=== PATIENT | female | born 1990 | race Two or more races ===

== ENCOUNTER 2017-07-06 11:18 | Emergency (ER) | payer OTHER ==
[2017-07-06 11:33] VITALS: BP 125/72
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
[2017-07-06] MEDS: MELOXICAM 7.5 MG TABLET PO STA (12:33)
[2017-07-06] MEDS: CYCLOBENZAPRINE 10 MG TABLET PO STA (12:33)
[2017-07-06] MEDS ORDERED: CYCLOBENZAPRINE 10 MG TABLET PO ONE (12:37)
[2017-07-06] MEDS ORDERED: MELOXICAM 7.5 MG TABLET PO ONE (12:38)
== END 2017-07-06 12:37 | disposition home or self-care (01) ==
LOC: ED 11:18
DX: T14.8XXA Other injury of unspecified body region, initial encounter (principal); M79.1 Myalgia; V49.50XA Passenger injured in collision with unspecified motor vehicles in traffic accident, initial encounter; F17.200 Nicotine dependence, unspecified, uncomplicated
CPT/HCPCS: 99283

== ENCOUNTER 2019-06-10 08:00 | Outpatient (CLI) | payer MEDICAID, OTHER ==
[2019-06-10 17:24] LABS: BILIRUBIN,URINE NEGATIVE (NEGATIVE); GLUCOSE, URINE (UA) NEGATIVE (NEGATIVE); KETONES,URINE (UA) NEGATIVE (NEGATIVE); LEUKOCYTE ESTERASE, URINE NEGATIVE (NEGATIVE); NITRITE,URINE NEGATIVE (NEGATIVE); OCCULT BLOOD,URINE MODERATE (NEGATIVE); PH,URINE 6.5 PH (5.0-7.5); PROTEIN,URINE NEGATIVE (NEGATIVE); UROBILINOGEN,URINE 0.2 (NORMAL) E.U./dL (NORMAL)
[2019-06-10 17:28] LABS: CLARITY,URINE CLEAR (CLEAR)
[2019-06-10 17:34] LABS: BACTERIA,URINE Moderate /HPF (None Seen); RBC,URINE 0-5 /HPF (0-5); SQUAMOUS EPITHELIAL CELL,UR RARE Squamous (<= Few)
== END 2019-06-10 23:59 | disposition home or self-care (01) ==
LOC: LAB.R 08:00
PROVIDERS: ATTEND Obstetrics & Gynecology
DX: N39.0 Urinary tract infection, site not specified (principal)
CPT/HCPCS: 80053; 81001; 85025; 85651; 86140; 87077; 87086; 87181

== ENCOUNTER 2020-06-07 10:40 | Outpatient (CLI) | payer BC | END 2020-06-07 23:59 | disposition home or self-care (01) | LOC: COV 10:40 | PROVIDERS: ATTEND Family Medicine | DX: Z20.828 Contact with and (suspected) exposure to other viral communicable diseases (principal) ==

== ENCOUNTER 2021-04-20 08:00 | Outpatient (CLI) | payer BC, OTHER | END 2021-04-20 23:59 | disposition home or self-care (01) | LOC: LAB.N 08:00 | PROVIDERS: ATTEND Physician Assistant Medical | DX: R09.81 Nasal congestion (principal); Z20.822 Contact with and (suspected) exposure to COVID-19 ==

== ENCOUNTER 2021-05-01 08:00 | Outpatient (CLI) | payer OTHER | END 2021-05-01 23:59 | disposition home or self-care (01) | LOC: LAB.N 08:00 | PROVIDERS: ATTEND Physician Assistant Medical | DX: R09.81 Nasal congestion (principal); Z20.822 Contact with and (suspected) exposure to COVID-19 ==